=== PATIENT | male | born 1950 | race Caucasian/White ===

== ENCOUNTER 2016-09-16 19:32 | Emergency (ER) | payer MEDICARE, MEDICAID ==
[~2016-09-16] VITALS: Ht 177.8 cm; Wt 65.8 kg
[~2016-09-16 19:32] MED LIST: QUET200T PO; VENL150C2 PO
[2016-09-16] MEDS ORDERED: MAGNESIUM CITRATE 296 ML BOTTLE ONE (21:43)
[2016-09-16 21:59] VITALS: BP 140/85
[2016-09-16] MEDS ORDERED: MAGNESIUM CITRATE 296 ML BOTTLE PO ONE (22:00)
== END 2016-09-16 21:59 | disposition home or self-care (01) ==
LOC: ER 19:40
DX: K59.00 Constipation, unspecified (principal); Z98.890 Other specified postprocedural states
CPT/HCPCS: 74022; 99284; A4606; Z7610

== ENCOUNTER 2019-11-06 17:14 | Emergency (ER) | payer MEDICARE, OTHER ==
[~2019-11-06] VITALS: Ht 177.8 cm; Wt 61.2 kg
[2019-11-06] MEDS ORDERED: TAMS-12 PO (17:38)
--- NOTE | 2019-11-06 17:41 | NUR ---
PAGED GI CONSTRUCTION PIT WORKER.
[2019-11-06] MEDS ORDERED: GLUCAGON,HUMAN RECOMBINANT 1 MG/VIAL VIAL ONE (17:44)
[2019-11-06] MEDS ORDERED: ONDANSETRON HCL/PF 4 MG/2 ML VIAL ONE (17:45)
[2019-11-06] MEDS ORDERED: GLUCAGON,HUMAN RECOMBINANT 1 MG/VIAL VIAL IV ONE (18:00)
[2019-11-06] MEDS ORDERED: ONDANSETRON HCL/PF 4 MG/2 ML VIAL IVP ONE (18:00)
[2019-11-06] MEDS ORDERED: IV NS 0.9% 1,000 ML BAG IV ONE (18:00)
--- NOTE | 2019-11-06 18:02 | NUR ---
pr rec'd to er c/o swallowed big piece of meat saturdday and pt cant swallow sip of water and nsuea iv started 20g left fa labs drawn sent to lab meds given per md order gi paged
[2019-11-06 18:05] LABS: BASOPHILS # (AUTO) 0.1 /CMM (0.0-0.2); BASOPHILS % (AUTO) 1.7 % (0.0-2.0); EOSINOPHILS % (AUTO) 0.2 % (0.0-6.0); HEMATOCRIT 40 % (39-51); HEMOGLOBIN 13.2 g/dL (13.5-17.5); LYMPHOCYTES # (AUTO) 0.8 /CMM (0.8-4.8); LYMPHOCYTES % (AUTO) 12.6 % (20.0-44.0); MEAN CORPUSCULAR HGB CONC 33 g/dl (31.0-36.0); MEAN CORPUSCULAR VOLUME 96 fL (80-96); MONOCYTES # (AUTO) 0.5 /CMM (0.1-1.30); MONOCYTES % (AUTO) 7.7 % (2.0-12.0); NEUTROPHILS # (AUTO) 4.9 /CMM (1.8-8.9); NEUTROPHILS % (AUTO) 77.8 % (43.0-81.0); PLATELET COUNT (AUTO) 382 /CMM (150-450); RED BLOOD CELL COUNT(AUTO) 4.15 MIL/uL (4.5-6.0); WHITE BLOOD COUNT (AUTO) 6.2 K/uL (4.3-11.0)
--- NOTE | 2019-11-06 18:06 | NUR ---
passed swallowing test
[2019-11-06 18:29] LABS: CALCIUM, SERUM 8.4 mg/dL (8.5-10.1); CARBON DIOXIDE 25 mmol/L (21-32); CHLORIDE 107 mmol/L (98-107); CREATININE 0.9 mg/dL (0.6-1.3); GLUCOSE 88 mg/dL (74-106); SODIUM SERUM 144 mmol/L (136-145); UREA NITROGEN, BLOOD 9 mg/dL (7-18)
--- NOTE | 2019-11-06 18:40 | NUR ---
tried sips of water didnt have n/v
--- NOTE | 2019-11-06 18:44 | NUR ---
pt being preop for egd npo since 1300 sips of water for testing only
[2019-11-06] MEDS ORDERED: ANESTHESIA TRAY IN PYXIS 1 EA TRAY MC ONE (19:22)
--- NOTE | 2019-11-06 19:44 | NUR ---
PT WAS PICKED UP BY [facility]
[2019-11-06] MEDS ORDERED: SUCCINYLCHOLINE CHLORIDE 20 MG/ML VIAL ONE (19:46)
--- NOTE | 2019-11-06 20:43 | NUR ---
PT BACK FROM EGD IN STABLE CONDITION. AWAKE, ALERTAND OX3. BREATHING EVENLY. NO SOB. SATTING 97% ON R/A. DENIED ANY DISCOMFORT. PT S PLACED ON RESPIRATORY CARE PRACTITIONER. VSS.
[2019-11-06 21:23] LABS: LYMPHOCYTES % (MANUAL) 21 % (16-48); MONOCYTES % (MANUAL) 5 % (0-11.0); NEUTROPHILS % (MANUAL) 73 (42-76); REACTIVE LYMPHOCYTES 1 % (0-0)
--- NOTE | 2019-11-06 21:39 | NUR ---
PT MEDICALLY CLEAR FOR D/C PER MD. VSS. PT ABULATORY AND COMPLETELY AWAKE. NO SOB. NO A/R TO EGD OR SEDATION NOTED. IV removed. Catheter intact and site benign. Pressure and 4x4 applied to site. No bleeding noted.Patient discharged to home in stable condition. Rx abnd Written and verbal after care instructions given. Patient verbalizes understanding of instruction. pt was provided w/ dr Guadalupe's info to schedule an appoitment in a month
[2019-11-06 21:49] VITALS: BP 117/72
== END 2019-11-06 21:39 | disposition home or self-care (01) ==
LOC: ER 17:24
DX: T18.128A Food in esophagus causing other injury, initial encounter (principal); R07.89 Other chest pain; Z98.890 Other specified postprocedural states; W45.8XXA Other foreign body or object entering through skin, initial encounter; Y93.89 Activity, other specified; Y92.89 Other specified places as the place of occurrence of the external cause; Y99.8 Other external cause status
CPT/HCPCS: 36415; 43247; 71045; 80048; 84484; 85025; 85610; 85730; 87081; 88305; 88313; 88342; 93005; 96374; 96375; 99285; J0330 ×2; J1610; J2405; J2704; J7030

== ENCOUNTER 2020-02-12 23:10 | Emergency (ER) | payer MEDICARE, OTHER ==
[~2020-02-12] VITALS: Ht 177.8 cm; Wt 61.2 kg
[~2020-02-12 23:10] MED LIST changes: +TAMS-12 PO; -VENL150C2 PO
--- NOTE | 2020-02-12 23:26 | NUR ---
CHOKING ON OWN SALIVA; FEELS LIKE SOMETHING STUCK IN THROAT X 4HRS. PT AAOX4, VSS. RR EVEN & UNLABORED. DENIES CP, SOB, DIZZINESS AT THIS TIME. PT SEEN & EVAL'D BY DR. AUGUSTINE. PLACED ON TERRITORY SUPERVISOR, NSR. 02 SAT 98% RA. WILL CONT TO MONITOR.
[2020-02-12] MEDS ORDERED: GLUCAGON,HUMAN RECOMBINANT 1 MG/VIAL VIAL IV ONE (23:30)
[2020-02-12] MEDS ORDERED: GLUCAGON,HUMAN RECOMBINANT 1 MG/VIAL VIAL ONE ×2 (23:36→23:46)
[2020-02-13 01:54] VITALS: BP 159/117
--- NOTE | 2020-02-13 01:54 | NUR ---
Patient discharged to home in stable condition. Written and verbal after care instructions given. Patient verbalizes understanding of instruction.
== END 2020-02-13 01:54 | disposition home or self-care (01) ==
LOC: ER 23:14
DX: T18.120A Food in esophagus causing compression of trachea, initial encounter (principal); R11.10 Vomiting, unspecified; Z98.890 Other specified postprocedural states; X58.XXXA Exposure to other specified factors, initial encounter; Y93.89 Activity, other specified; Y92.89 Other specified places as the place of occurrence of the external cause; Y99.8 Other external cause status
CPT/HCPCS: 96374; 99283; J1610

== ENCOUNTER 2021-01-02 18:29 | Emergency (ER) | payer MEDICARE, OTHER ==
[~2021-01-02] VITALS: Ht 177.8 cm; Wt 65.8 kg
[2021-01-02] MEDS ORDERED: HYDR50TA61 PO (18:38)
[2021-01-02] MEDS ORDERED: OMEP40CA13 PO (18:38)
[2021-01-02 18:40] VITALS: BP 169/85
[2021-01-02] MEDS ORDERED: DIPH25TA25 PO (19:10)
[2021-01-02] MEDS ORDERED: HYDR453.4 TP (19:10)
== END 2021-01-02 19:44 | disposition home or self-care (01) ==
LOC: ER 18:29
DX: L30.8 Other specified dermatitis (principal); F10.10 Alcohol abuse, uncomplicated; Y90.9 Presence of alcohol in blood, level not specified; Z98.890 Other specified postprocedural states; Z79.899 Other long term (current) drug therapy

== ENCOUNTER 2021-09-09 17:29 | Inpatient (IN) | payer MEDICARE, OTHER ==
[~2021-09-09] VITALS: Ht 177.8 cm; Wt 74.4 kg
[~2021-09-09 17:29] MED LIST changes: +DIPH25TA25 PO; +HYDR453.4 TP; +HYDR50TA61 PO; +OMEP40CA21 PO
--- NOTE | 2021-09-09 17:45 | NUR ---
PT CAME TO ER C/O WORSENING SOB X "FEW WEEKS" AND R LEG PAIN. AAOX4, BREATHING EVEN AND UNLABORED. POX 96% ON RA. SKIN IS FLAY AND MOIST. TACHYCARDIC HR 104. WILL CONTINUE TO MONITOR. Addendum: 09/09/21 at 2312 by ISIS CORRECTION: SKIN IS "FLAKING" AND MOIST
[2021-09-09] MEDS ORDERED: ATOR10TA PO (18:11)
[2021-09-09] MEDS ORDERED: BETA15CR4 TP (18:11)
[2021-09-09] MEDS ORDERED: ARIP10TA9 PO (18:17)
[2021-09-09 19:08] LABS: CALCIUM, SERUM 8.5 mg/dL (8.5-10.1); CARBON DIOXIDE 18 mmol/L (21-32); CHLORIDE 108 mmol/L (98-107); CREATININE 1.4 mg/dL (0.6-1.3); GLUCOSE 90 mg/dL (74-106); POTASSIUM 4.4 mmol/L (3.5-5.1); SODIUM SERUM 139 mmol/L (136-145); UREA NITROGEN, BLOOD 18 mg/dL (7-18)
[2021-09-09 19:20] LABS: ALANINE AMINOTRANSFERASE 27 U/L (12-78); ALBUMIN 2.4 g/dL (3.4-5.0); ALKALINE PHOSPHATASE 132 U/L (46-116); ASPARTATE AMINOTRANSFERASE 38 U/L (15-37); BILIRUBIN,DIRECT 0.1 mg/dL (0.0-0.2); BILIRUBIN,TOTAL 0.2 mg/dL (0.2-1.0); TOTAL PROTEIN, SERUM 6.8 g/dL (6.4-8.2)
[2021-09-09] MEDS ORDERED: diphenhydrAMINE HCL 50 MG/ML VIAL ONE ×2 (19:22→21:58)
[2021-09-09] MEDS ORDERED: diphenhydrAMINE HCL 50 MG/ML VIAL IV ONE ×2 (19:30→22:30)
--- NOTE | 2021-09-09 19:37 | NUR ---
CALLED TRACEY KNIGHT
[2021-09-09 19:52] LABS: BASOPHILS % (AUTO) 0.5 % (0.0-2.0); EOSINOPHILS % (AUTO) 3.2 % (0.0-6.0); HEMATOCRIT 39 % (39-51); HEMOGLOBIN 13.1 g/dL (13.5-17.5); LYMPHOCYTES # (AUTO) 0.9 K/uL (0.8-4.8); LYMPHOCYTES % (AUTO) 9.4 % (20.0-44.0); MEAN CORPUSCULAR HGB CONC 33 g/dl (31.0-36.0); MEAN CORPUSCULAR VOLUME 97 fL (80-96); MONOCYTES # (AUTO) 1.5 K/uL (0.1-1.30); MONOCYTES % (AUTO) 15.5 % (2.0-12.0); NEUTROPHILS # (AUTO) 6.7 K/uL (1.8-8.9); NEUTROPHILS % (AUTO) 71.4 % (43.0-81.0); PLATELET COUNT (AUTO) 595 K/uL (150-450); RED BLOOD CELL COUNT(AUTO) 4.05 MIL/uL (4.5-6.0); WHITE BLOOD COUNT (AUTO) 9.4 K/uL (4.3-11.0)
--- NOTE | 2021-09-09 20:02 | NUR ---
COVID SWAB DONE AND SENT TO LAB
[2021-09-09] MEDS ORDERED: PIPERACILLIN /TAZOBACTAM 3.375 G in IV D5W 50 ML IV ONE (20:30)
[2021-09-09] MEDS ORDERED: VANCOMYCIN 1 GM in IV D5W 250 ML IV ONE (20:30)
[2021-09-09 20:41] LABS: BAND % (MANUAL) 2 % (0.0-5.0); EOSINOPHILS % (MANUAL) 1 % (0-4); LYMPHOCYTES % (MANUAL) 12 % (16-48); MONOCYTES % (MANUAL) 18 % (0-11.0); NEUTROPHILS % (MANUAL) 67 (42-76)
--- NOTE | 2021-09-09 20:45 | NUR ---
PT'S IV LINE CAME OUT
[2021-09-09] MEDS ORDERED: IOHEXOL-350 100 ML VIAL IV ONE (20:59)
[2021-09-09] MEDS ORDERED: CT SWABBABLE VALVE TRANS SET 1 EA INFUS.SET MC ONE (20:59)
[2021-09-09] MEDS ORDERED: IV NS 0.9% 250 ML IV ONE (20:59)
--- NOTE | 2021-09-09 21:00 | NUR ---
IV LINE STARTED RAC 20G
--- NOTE | 2021-09-09 21:04 | NUR ---
CULTURES DONE AND SENT TO LAB
--- NOTE | 2021-09-09 21:04 | NUR ---
PATIENT GOING TO CT.
--- NOTE | 2021-09-09 21:16 | NUR ---
PT BACK FROM CT
--- NOTE | 2021-09-09 22:02 | NUR ---
PT EXPERIENCING PRURITUS D/T ECZEMA FLARE UP. AWARE
--- NOTE | 2021-09-09 22:02 | NUR ---
VANCOMYCIN STOPPED D/T PRURITUS
--- NOTE | 2021-09-09 22:20 | NUR ---
VANCOMYCIN RESTARTED AT 100 ML/HR PER DR MORRIS'S ORDER
[2021-09-09] MEDS ORDERED: ACETAMINOPHEN 325 MG TABLET PO PRN (22:30)
[2021-09-09] MEDS ORDERED: Z GUARD REMEDY 4 OZ OINT TP PRN (22:30)
[2021-09-09] MEDS ORDERED: ZOLPIDEM TARTRATE 5 MG TABLET PO PRN (22:30)
[2021-09-09] MEDS ORDERED: MAGNESIUM HYDROXIDE 30 ML UDC PO PRN (22:30)
[2021-09-09] MEDS ORDERED: MORPHINE SULFATE INJ 2 MG/ML DISP.SYRIN IV PRN (22:30)
[2021-09-09] MEDS ORDERED: ONDANSETRON HCL/PF 4 MG/2 ML VIAL IVP PRN (22:30)
[2021-09-09] MEDS ORDERED: MAG HYDROX/AL HYDROX/SIMETH 30 ML UDC PO PRN (22:30)
--- NOTE | 2021-09-09 23:08 | NUR ---
BED 309-2
--- NOTE | 2021-09-09 23:09 | NUR ---
BED 329-2
--- NOTE | 2021-09-09 23:11 | NUR ---
NURSE BUSY, SAID WILL CALL BACK TO GIVE REPORT
--- NOTE | 2021-09-09 23:32 | NUR ---
REPORT GIVEN TO RN
--- NOTE | 2021-09-09 23:48 | NUR ---
TRANSFERRING PT TO 329 VIA ACLS
--- NOTE | 2021-09-09 23:57 | NUR ---
PT WAS TRANSFERRED TO THIRD FLOOR UNDER ACLS.
[2021-09-10] VITALS: BP 109/68
[2021-09-10] MEDS: IV 1/2NS 1000 ML 1,000 ML IV PRN ×2 (01:10→21:29)
[2021-09-10 01:47] VITALS: BP 109/68
[2021-09-10] MEDS: HYDROCODONE/APAP 5/325MG TABLET PO PRN ×3 (02:03→19:37)
--- NOTE | 2021-09-10 03:27 | NUR ---
PATIENT COMPLAINED OF GENERALIZED ITCHINESS, INFORMED DR KNIGHT.
[2021-09-10] MEDS ORDERED: PIPERACILLIN /TAZOBACTAM 3.375 G VIAL IV ONE (04:13)
[2021-09-10] MEDS ORDERED: diphenhydrAMINE HCL 50 MG/ML VIAL ONE (04:21)
[2021-09-10] MEDS ORDERED: ZOSYN IVPB 3.375 G in IV D5W 50ml IV ONE (04:30)
[2021-09-10] MEDS: diphenhydrAMINE HCL 50 MG/ML VIAL IV PRN ×3 (04:42→21:16)
[2021-09-10 04:55] VITALS: BP 147/82
[2021-09-10 07:31] LABS: BASOPHILS % (AUTO) 0.4 % (0.0-2.0); EOSINOPHILS % (AUTO) 0.6 % (0.0-6.0); HEMATOCRIT 36 % (39-51); HEMOGLOBIN 11.9 g/dL (13.5-17.5); LYMPHOCYTES # (AUTO) 0.5 K/uL (0.8-4.8); MEAN CORPUSCULAR HGB CONC 33 g/dl (31.0-36.0); MEAN CORPUSCULAR VOLUME 97 fL (80-96); MONOCYTES # (AUTO) 1.6 K/uL (0.1-1.30); MONOCYTES % (AUTO) 15.5 % (2.0-12.0); NEUTROPHILS # (AUTO) 8.2 K/uL (1.8-8.9); NEUTROPHILS % (AUTO) 78.5 % (43.0-81.0); PLATELET COUNT (AUTO) 542 K/uL (150-450); RED BLOOD CELL COUNT(AUTO) 3.71 MIL/uL (4.5-6.0); WHITE BLOOD COUNT (AUTO) 10.5 K/uL (4.3-11.0)
--- NOTE | 2021-09-10 07:35 | NUR ---
WOOD AND HARDWARE OUTFITTER NOTES RECEIVED PATIENT IN BED, AWAKE. A/O X4. EQUAL CHEST EXPANSION DURING RESPIRATIONS ON RA. PATIENT COMPLAINT OF GENERALIZED ITCHINESS. SKIN REDNESS/RASH NOTED ON BLE AND GENERALIZED BODY. BENADRIL 25 MG IV WAS GIVEN FOR ITCHINESS. R AC G#20 INTACT AND PATENT WITH 1/2 NS RUNNING @75 ML/HR. TELE MONITOR SHOWS SINUS TACH 106 BPM AT THIS TIME. SAFETY MEASURES IN PLACE: BED LOWEST POSITION, WHEELS ARE LOCKED, SIDE RAILS UP X2, CALL LIGHT WITHIN REACH. WILL CONTINUE TO MONITOR PATIENT
[2021-09-10 07:58] LABS: CARBON DIOXIDE 18 mmol/L (21-32); CHLORIDE 108 mmol/L (98-107); CREATININE 1.4 mg/dL (0.6-1.3); GLUCOSE 78 mg/dL (74-106); MAGNESIUM 2.1 mg/dL (1.8-2.4); PHOSPHORUS 4.1 mg/dL (2.5-4.9); SODIUM SERUM 138 mmol/L (136-145); UREA NITROGEN, BLOOD 22 mg/dL (7-18)
[2021-09-10 08:00] VITALS: BP 142/112
[2021-09-10] MEDS: HEPARIN SODIUM, PORCINE 5000 UNITS/1 ML VIAL SQ SCH ×2 (09:46→21:17)
[2021-09-10] MEDS: PANTOPRAZOLE 40 MG TABLET.DR PO SCH (09:47)
[2021-09-10] MEDS: VANCOMYCIN 0.75 GM in IV D5W 250 ML IV SCH ×2 (10:58→21:15)
[2021-09-10 11:12] LABS: BAND % (MANUAL) 2 % (0.0-5.0); LYMPHOCYTES % (MANUAL) 5 % (16-48); MONOCYTES % (MANUAL) 15 % (0-11.0); NEUTROPHILS % (MANUAL) 78 (42-76)
[2021-09-10 13:00] VITALS: BP 154/88
[2021-09-10] MEDS ORDERED: BETAMETHASONE DIP 0.05% CREAM 15 GM TUBE TP PRN (13:00)
[2021-09-10] MEDS ORDERED: hydrOXYzine 10 MG TABLET PO PRN (13:30)
[2021-09-10] MEDS: ARIPIPRAZOLE 5 MG TABLET PO SCH (13:44)
[2021-09-10] MEDS: PIPERACILLIN /TAZOBACTAM 3.375 G in IV D5W 50 ML IV SCH ×2 (13:44→17:48)
--- NOTE | 2021-09-10 19:30 | NUR ---
RIGGING SLINGER OPENING NOTES: RECEIVED PATIENT IN BED, AWAKE, A/O X4. NO S/S OF DISTRESS NOTED. NO COMPLAIN OF PAIN. CALL LIGHT WITHIN REACH. BED ALARM ON. BED IN LOWEST AND LOCKED POSITION. CONTACT ISOLATION MAINTAINED AT ALL TIMES.
[2021-09-10 20:00] VITALS: BP 147/79
--- NOTE | 2021-09-10 20:29 | NUR ---
DR JEFFREY CAME AND SEEN THE PATIENT. PER MD IT'S NOT CELLULITIS OF THE LEGS, MAY BENEFIT FROM EPIC BEACON ANALYST CONSULTATIONS.
[2021-09-10] MEDS: ATORVASTATIN 10 MG TABLET PO SCH (21:16)
[2021-09-10] MEDS: QUETIAPINE FUMARATE 100 MG TABLET PO SCH (21:16)
--- NOTE | 2021-09-10 23:35 | NUR ---
IV ON THE RIGHT AC INFILTRATED. REMOVED. TRIED TO REINSERT THE IV,UNSUCCESSFUL, CHARGE NURSE MADE AWARE.
[2021-09-11] VITALS: BP 104/63
[2021-09-11 04:00] VITALS: BP 136/84
--- NOTE | 2021-09-11 07:59 | NUR ---
MASON TENDER RESTORATION LABOR OPENING NOTE Patient in bed, awake. A/O x 4, able to make needs known. On room air, breathing evenly and unlabored. No SOB or s/s of distress noted. IV access on LEJ infusing 1/2 NS at 75 ml/hr. On tele monitoring showing SR at 96. Safety precautions in place: bed in low, locked position; siderails up x 2; call light within reach. Will continue to monitor.
[2021-09-11 08:00] VITALS: BP 131/68
[2021-09-11 08:17] LABS: CARBON DIOXIDE 17 mmol/L (21-32); CHLORIDE 109 mmol/L (98-107); CREATININE 1.5 mg/dL (0.6-1.3); GLUCOSE 72 mg/dL (74-106); POTASSIUM 3.9 mmol/L (3.5-5.1); SODIUM SERUM 138 mmol/L (136-145); UREA NITROGEN, BLOOD 27 mg/dL (7-18)
--- NOTE | 2021-09-11 08:18 | NUR ---
WOUND CARE CONSULT: PT PRESENTS WITH REDNESS AND SCRATCH RODRIGUEZ, TINY SCABS ALL OVER BODY WITH SOME DRIED BLOOD ON LOWER LEGS WELL LONG TOENAILS, PRESENT ON ADMISSION. DEFER TO PMD FOR GENERALIZED SKIN CONDITION. DPM CONSULT CALLED TO DR LOPEZ. PT IS ABLE TO TURN AND REPOSITION IN BED. MD IN AGREEMENT WITH PLAN OF CARE.
[2021-09-11] MEDS: PANTOPRAZOLE 40 MG TABLET.DR PO SCH (09:53)
[2021-09-11] MEDS: TAMSULOSIN 0.4 MG CAP.SR.24H PO SCH (09:53)
[2021-09-11] MEDS: ARIPIPRAZOLE 5 MG TABLET PO SCH (09:53)
[2021-09-11] MEDS: HEPARIN SODIUM, PORCINE 5000 UNITS/1 ML VIAL SQ SCH ×2 (09:55→21:08)
[2021-09-11] MEDS: VANCOMYCIN 0.75 GM in IV D5W 250 ML IV SCH (10:00)
--- NOTE | 2021-09-11 10:19 | NUR ---
RN NOTE Vancomycin trough is 25, Vancomycin IV scheduled for 1000 held.
[2021-09-11] MEDS ORDERED: methylPREDNISolone DOSPAK(4MG) 1 PACK TAB.DS.PK PO ONE (11:30)
[2021-09-11] MEDS ORDERED: methylPREDNISolone (4MG) 4 MG TABLET (DAY #1 ) PO ONE (12:00)
[2021-09-11] MEDS: HYDROCODONE/APAP 5/325MG TABLET PO PRN ×2 (12:19→17:59)
[2021-09-11] MEDS ORDERED: methylPREDNISolone (4MG) 4 MG TABLET (DAY #1, PC LUNCH) PO ONE (12:30)
[2021-09-11 16:00] VITALS: BP 145/79
[2021-09-11] MEDS: VANCOMYCIN 500 MG in IV D5W 100ml IV SCH (16:30)
[2021-09-11] MEDS ORDERED: methylPREDNISolone (4MG) 4 MG TABLET (DAY #1 PC DINNER) PO ONE (17:30)
[2021-09-11] MEDS: IV 1/2NS 1000 ML 1,000 ML IV PRN (17:55)
--- NOTE | 2021-09-11 19:41 | NUR ---
AIR TUBE RELEASER CLOSING NOTE Patient in bed, resting comfortably. A/O x 4, able to make needs known. Stable on room air, breathing evenly and unlabored. No SOB or s/s of distress noted. IV access on LEJ infusing 1/2 NS at 75 ml/hr. Rashes on BLE noted, skin dry and cracked. All needs attended to. Due meds given. Safety precautions maintained: bed in low, locked position; siderails up x 2; call light within reach. Will endorse to maintenance supervisor 2nd shift nurse for JOSE L.
--- NOTE | 2021-09-11 19:50 | NUR ---
MS RN OPENING NOTES RECEIVED PATIENT LAYING AWAKE IN BED. A/O X 4. PATIENT WITH REGULAR AND UNLABORED BREATHING ON ROOM AIR TOLERATED WELL. NO SIGNS AND SYMPTOMS OF DISTRESS NOTED AT THIS TIME. NO COMPLAINS OF PAIN OR DISCOMFORT AT THIS TIME. IV ACCESS LEJ G #20 RUNNING 1/2 NS @ 75 ML/HR. IV ACCESS PATENT AND INTACT. SAFETY PRECAUTIONS ENFORCED WITH BED LOCKED AND AT LOWEST POSITION. SIDERAILS UP X2. CALL LIGHT WITHIN REACH AT ALL TIMES. WILL CONTINUE TO MONITOR PATIENT.
[2021-09-11 20:00] VITALS: BP 133/75
[2021-09-11] MEDS: QUETIAPINE FUMARATE 100 MG TABLET PO SCH (21:07)
[2021-09-11] MEDS: ATORVASTATIN 10 MG TABLET PO SCH (21:07)
[2021-09-11] MEDS ORDERED: methylPREDNISolone (4MG) 4 MG TABLET (DAY1,HS) PO ONE (22:00)
[2021-09-12] MEDS: HYDROCODONE/APAP 5/325MG TABLET PO PRN ×3 (01:43→15:59)
--- NOTE | 2021-09-12 04:35 | NUR ---
MS RN NOTES LEJ IV REMOVED CATHETER INTACT. IV ACCESS INSERTED L HAND G #22 IV ACCESS PATENT AND INTACT FLUSHING WELL. WILL CONTINUE TO MONITOR PATIENT.
[2021-09-12] MEDS: VANCOMYCIN 500 MG in IV D5W 100ml IV SCH ×2 (04:38→16:00)
--- NOTE | 2021-09-12 06:58 | NUR ---
MS RN CLOSING NOTES PATIENT STILL LAYING AWAKE IN BED. A/O X 4. PATIENT WITH REGULAR AND UNLABORED BREATHING ON ROOM AIR TOLERATED WELL. NO SIGNS AND SYMPTOMS OF DISTRESS NOTED AT THIS TIME. NO COMPLAINS OF PAIN OR DISCOMFORT AT THIS TIME. IV ACCESS L HAND G #22 RUNNING 1/2 NS @ 75 ML/HR. IV ACCESS PATENT AND INTACT. SAFETY PRECAUTIONS ENFORCED WITH BED LOCKED AND AT LOWEST POSITION. SIDERAILS UP X2. CALL LIGHT WITHIN REACH AT ALL TIMES. WILL ENDORSE CONTINUITY OF CARE TO DAY SHIFT NURSE.
[2021-09-12] MEDS ORDERED: methylPREDNISolone (4MG) 4 MG TABLET (DAY#2 ACB) PO ONE (07:30)
[2021-09-12] MEDS: PANTOPRAZOLE 40 MG TABLET.DR PO SCH (07:46)
--- NOTE | 2021-09-12 07:59 | NUR ---
FLY WORKER OPENING NOTE Patient in bed, awake. A/O x 4, able to make needs known. On room air, breathing evenly and unlabored. No SOB or s/s of distress noted. IV access on Left hand #22G infusing 1/2 NS at 75 ml/hr. Skin rashes noted on BLE and BUE, skin is dry and cracking. Safety precautions in place: bed in low, locked position; siderails up x 2; call light within reach. Will continue to monitor.
--- NOTE | 2021-09-12 08:00 | NUR ---
RN NOTE Patient complained of pain on BLE 02/23, PRN [place] given. Will continue to monitor.
[2021-09-12 08:11] LABS: CREATININE 1.2 mg/dL (0.6-1.3); POTASSIUM 3.9 mmol/L (3.5-5.1)
[2021-09-12] MEDS: TAMSULOSIN 0.4 MG CAP.SR.24H PO SCH (08:37)
[2021-09-12] MEDS: ARIPIPRAZOLE 5 MG TABLET PO SCH (08:37)
[2021-09-12] MEDS: HEPARIN SODIUM, PORCINE 5000 UNITS/1 ML VIAL SQ SCH (08:38)
[2021-09-12] MEDS ORDERED: VANC1VIA34 XX (10:45)
[2021-09-12] MEDS ORDERED: METH4TAB17 PO (11:00)
[2021-09-12] MEDS: IV 1/2NS 1000 ML 1,000 ML IV PRN (11:13)
[2021-09-12] MEDS ORDERED: methylPREDNISolone (4MG) 4 MG TABLET (DAY#2,PC LUNCH) PO ONE (12:30)
[2021-09-12] MEDS ORDERED: IVERMECTIN 3 MG TABLET PO ONE (15:00)
[2021-09-12] MEDS ORDERED: methylPREDNISolone (4MG) 4 MG TABLET (DAY#2, PC DINNER) PO ONE (17:30)
--- NOTE | 2021-09-12 18:45 | NUR ---
DISCHARGE NOTE Received order for discharge. Patient is A/O x 4, able to make needs known. Stable on room air, breathing evenly and unlabored. No SOB or s/s distress noted. Discharge instructions given, verbalized understanding. All belongings accounted for. Report given to Lynnette of [facility]. IV access removed on left hand, no bleeding noted. New IV access placed on FAYE #20 for continuity of IV antibiotic at the SNF. Exitcare folder given to EMT. ID band removed. Patient left in stable condition via ambulance with 3 legal researcher present.
[2021-09-12] MEDS ORDERED: methylPREDNISolone (4MG) 4 MG TABLET (DAY#2, HS) PO ONE (21:00)
[2021-09-13] MEDS ORDERED: methylPREDNISolone (4MG) 4 MG TABLET (DAY#3,ACB) PO ONE (07:30)
[2021-09-13] MEDS ORDERED: methylPREDNISolone (4MG) 4 MG TABLET (DAY#3,PC LUNCH) PO ONE (12:30)
[2021-09-13] MEDS ORDERED: methylPREDNISolone (4MG) 4 MG TABLET (DAY#3,PC DINNER) PO ONE (17:30)
[2021-09-13] MEDS ORDERED: methylPREDNISolone (4MG) 4 MG TABLET (DAY#3, HS) PO ONE (22:00)
[2021-09-14] MEDS ORDERED: methylPREDNISolone (4MG) 4 MG TABLET (DAY #4, ACB) PO ONE (07:30)
[2021-09-14] MEDS ORDERED: methylPREDNISolone (4MG) 4 MG TABLET (DAY #4, PC LUNCH) PO ONE (12:30)
[2021-09-14] MEDS ORDERED: methylPREDNISolone (4MG) 4 MG TABLET (DAY#4 HS) PO ONE (22:00)
[2021-09-15] MEDS ORDERED: methylPREDNISolone (4MG) 4 MG TABLET (DAY#5, ACB) PO ONE (07:30)
[2021-09-15] MEDS ORDERED: methylPREDNISolone (4MG) 4 MG TABLET (DAY#5,HS) PO ONE (22:00)
[2021-09-16] MEDS ORDERED: methylPREDNISolone (4MG) 4 MG TABLET (DAY#6,ACB) PO ONE (07:30)
[2021-09-26] MEDS ORDERED: IVERMECTIN 3 MG TABLET PO ONE (15:00)
== END 2021-09-12 18:45 | DRG 606 ==
LOC: ER 17:39 → TELE 23:07 → MED 09-11 08:59
PROVIDERS: ADMIT Student in an Organized Health Care Education/Training Program; ATTEND Internal Medicine
DX: L20.9 Atopic dermatitis, unspecified (principal); N17.0 Acute kidney failure with tubular necrosis; L03.115 Cellulitis of right lower limb; E87.2 Acidosis; L03.116 Cellulitis of left lower limb; N40.0 Benign prostatic hyperplasia without lower urinary tract symptoms; D64.9 Anemia, unspecified; D75.839 Thrombocytosis, unspecified; F31.9 Bipolar disorder, unspecified; K46.9 Unspecified abdominal hernia without obstruction or gangrene; Z79.899 Other long term (current) drug therapy; E78.5 Hyperlipidemia, unspecified; R74.01 Elevation of levels of liver transaminase levels; I87.2 Venous insufficiency (chronic) (peripheral); N13.9 Obstructive and reflux uropathy, unspecified; I71.2 Thoracic aortic aneurysm, without rupture; L60.3 Nail dystrophy; M62.562 Muscle wasting and atrophy, not elsewhere classified, left lower leg; M62.561 Muscle wasting and atrophy, not elsewhere classified, right lower leg
CPT/HCPCS: 36415; 71045-TC; 80048-TC; 80076-TC; 80202-TC; 83605-TC; 83735-TC; 83880; 84100-TC; 84484-TC; 85025-TC; 85378-TC; 86803; 87040-TC; 87081-TC; 87806; 93307-TC; 93970-TC; C9803; G0378; J1200; J1644; J2270; J2543; J3370; J3490; J7050; J7060; J7509; Q9967

== ENCOUNTER 2021-12-14 16:19 | Inpatient (IN) | payer MEDICARE, OTHER ==
[~2021-12-14] VITALS: Ht 177.8 cm; Wt 71.7 kg
[~2021-12-14 16:19] MED LIST changes: +ARIP10TA9 PO; +ATOR10TA PO; +BETA15CR4 TP; -DIPH25TA25 PO; -HYDR453.4 TP; +METH4TAB17 PO; +VANC1VIA34 XX
[2021-12-14] MEDS ORDERED: diphenhydrAMINE HCL 50 MG/ML VIAL IV ONE (17:30)
[2021-12-14] MEDS ORDERED: IV NS 0.9% 1,000 ML BAG IV ONE (17:30)
[2021-12-14] MEDS ORDERED: VANCOMYCIN 1 GM in IV D5W 250 ML IV ONE (17:30)
[2021-12-14] MEDS ORDERED: diphenhydrAMINE HCL 50 MG/ML VIAL ONE (17:30)
[2021-12-14] MEDS ORDERED: CEFTRIAXONE 1GM BAG (ER ONLY) 50 ML IV ONE (17:30)
[2021-12-14 18:08] LABS: BASOPHILS # (AUTO) 0.1 K/uL (0.0-0.2); EOSINOPHILS % (AUTO) 19.6 % (0.0-6.0); HEMATOCRIT 32 % (39-51); HEMOGLOBIN 10.6 g/dL (13.5-17.5); LYMPHOCYTES # (AUTO) 0.8 K/uL (0.8-4.8); LYMPHOCYTES % (AUTO) 12.6 % (20.0-44.0); MEAN CORPUSCULAR HGB CONC 33 g/dl (31.0-36.0); MEAN CORPUSCULAR VOLUME 89 fL (80-96); MONOCYTES # (AUTO) 0.8 K/uL (0.1-1.30); MONOCYTES % (AUTO) 13.5 % (2.0-12.0); NEUTROPHILS # (AUTO) 3.3 K/uL (1.8-8.9); NEUTROPHILS % (AUTO) 53.3 % (43.0-81.0); PLATELET COUNT (AUTO) 596 K/uL (150-450); RED BLOOD CELL COUNT(AUTO) 3.62 MIL/uL (4.5-6.0); WHITE BLOOD COUNT (AUTO) 6.2 K/uL (4.3-11.0)
[2021-12-14 18:20] LABS: CALCIUM, SERUM 8.1 mg/dL (8.5-10.1); CREATININE 1.1 mg/dL (0.6-1.3); POTASSIUM 4.1 mmol/L (3.5-5.1)
[2021-12-14] MEDS ORDERED: ONDANSETRON HCL/PF 4 MG/2 ML VIAL IVP PRN (21:00)
[2021-12-14] MEDS ORDERED: BETAMETHASONE DIP 0.05% CREAM 15 GM TUBE TP PRN (21:00)
[2021-12-14] MEDS ORDERED: Z GUARD REMEDY 4 OZ OINT TP PRN (21:00)
[2021-12-14] MEDS ORDERED: ZOLPIDEM TARTRATE 5 MG TABLET PO PRN (21:00)
[2021-12-14] MEDS ORDERED: MAG HYDROX/AL HYDROX/SIMETH 30 ML UDC PO PRN (21:00)
[2021-12-14] MEDS ORDERED: MAGNESIUM HYDROXIDE 30 ML UDC PO PRN (21:00)
[2021-12-14] MEDS ORDERED: hydrOXYzine PAMOATE 50 MG CAPSULE PO PRN (21:30)
[2021-12-14 22:40] VITALS: BP 152/85
[2021-12-14] MEDS: ATORVASTATIN 10 MG TABLET PO SCH (23:10)
[2021-12-14] MEDS: QUETIAPINE FUMARATE 100 MG TABLET PO SCH (23:10)
[2021-12-14] MEDS: IV NS 0.9% 1,000 ML IV PRN (23:52)
[2021-12-15] MEDS ORDERED: VANCOMYCIN 1 GM in IV D5W 250 ML IV ONE (06:00)
[2021-12-15] MEDS ORDERED: hydrOXYzine PAMOATE 25 MG CAPSULE PO PRN (06:30)
[2021-12-15] MEDS: TAMSULOSIN 0.4 MG CAP.SR.24H PO SCH (08:57)
[2021-12-15] MEDS: PANTOPRAZOLE 40 MG TABLET.DR PO SCH (08:57)
[2021-12-15] MEDS: ARIPIPRAZOLE 5 MG TABLET PO SCH (08:58)
[2021-12-15] MEDS ORDERED: CEFTRIAXONE 1 G in IV D5W 50 ML IV SCH ×2 (09:00→18:00)
[2021-12-15 09:21] LABS: CALCIUM, SERUM 7.3 mg/dL (8.5-10.1); CREATININE 0.8 mg/dL (0.6-1.3); MAGNESIUM 1.5 mg/dL (1.8-2.4); PHOSPHORUS 3.4 mg/dL (2.5-4.9)
[2021-12-15] MEDS ORDERED: MAGNESIUM OXIDE 400 MG TABLET PO ONE (10:00)
[2021-12-15] MEDS ORDERED: MOMETASONE FUROATE 0.1% CREAM 15 GM TUBE TP PRN (10:30)
[2021-12-15 11:46] LABS: BASOPHILS # (AUTO) 0.1 K/uL (0.0-0.2); BASOPHILS % (AUTO) 1.4 % (0.0-2.0); EOSINOPHILS % (AUTO) 5.8 % (0.0-6.0); HEMATOCRIT 27 % (39-51); HEMOGLOBIN 8.8 g/dL (13.5-17.5); LYMPHOCYTES # (AUTO) 0.4 K/uL (0.8-4.8); LYMPHOCYTES % (AUTO) 8.3 % (20.0-44.0); MEAN CORPUSCULAR HGB CONC 33 g/dl (31.0-36.0); MEAN CORPUSCULAR VOLUME 89 fL (80-96); MONOCYTES # (AUTO) 0.4 K/uL (0.1-1.30); MONOCYTES % (AUTO) 8.4 % (2.0-12.0); NEUTROPHILS # (AUTO) 3.4 K/uL (1.8-8.9); NEUTROPHILS % (AUTO) 76.1 % (43.0-81.0); PLATELET COUNT (AUTO) 433 K/uL (150-450); RED BLOOD CELL COUNT(AUTO) 2.99 MIL/uL (4.5-6.0); WHITE BLOOD COUNT (AUTO) 4.5 K/uL (4.3-11.0)
[2021-12-15] MEDS: IV NS 0.9% 1,000 ML IV PRN (17:14)
[2021-12-15] MEDS: ACETAMINOPHEN 325 MG TABLET PO PRN (17:15)
[2021-12-15] MEDS ORDERED: VANCOMYCIN 1 GM in IV D5W 250 ML IV SCH (18:00)
[2021-12-15 20:00] VITALS: BP 100/65
[2021-12-15] MEDS ORDERED: PERMETHRIN 5% CRM 60 GM TUBE TP ONE ×2 (22:00→23:03)
[2021-12-15] MEDS ORDERED: IVERMECTIN 3 MG TABLET PO ONE (22:00)
[2021-12-15] MEDS: QUETIAPINE FUMARATE 100 MG TABLET PO SCH (22:06)
[2021-12-15] MEDS: DOXYCYCLINE HYCLATE (100 MG) 100 MG TABLET PO SCH (22:06)
[2021-12-15] MEDS: ATORVASTATIN 10 MG TABLET PO SCH (22:07)
[2021-12-16 07:24] LABS: BASOPHILS % (AUTO) 0.7 % (0.0-2.0); EOSINOPHILS % (AUTO) 7.6 % (0.0-6.0); HEMATOCRIT 27 % (39-51); HEMOGLOBIN 8.9 g/dL (13.5-17.5); LYMPHOCYTES # (AUTO) 0.7 K/uL (0.8-4.8); LYMPHOCYTES % (AUTO) 12.2 % (20.0-44.0); MEAN CORPUSCULAR HGB CONC 33 g/dl (31.0-36.0); MEAN CORPUSCULAR VOLUME 88 fL (80-96); MONOCYTES # (AUTO) 0.8 K/uL (0.1-1.30); MONOCYTES % (AUTO) 14.3 % (2.0-12.0); NEUTROPHILS # (AUTO) 3.8 K/uL (1.8-8.9); NEUTROPHILS % (AUTO) 65.2 % (43.0-81.0); PLATELET COUNT (AUTO) 449 K/uL (150-450); RED BLOOD CELL COUNT(AUTO) 3.07 MIL/uL (4.5-6.0); WHITE BLOOD COUNT (AUTO) 5.8 K/uL (4.3-11.0)
[2021-12-16 07:53] LABS: ALBUMIN 1.5 g/dL (3.4-5.0); BILIRUBIN,TOTAL 0.2 mg/dL (0.2-1.0); CALCIUM, SERUM 7.5 mg/dL (8.5-10.1); CREATININE 0.9 mg/dL (0.6-1.3); MAGNESIUM 1.6 mg/dL (1.8-2.4); PHOSPHORUS 2.4 mg/dL (2.5-4.9); POTASSIUM 3.9 mmol/L (3.5-5.1); TOTAL PROTEIN, SERUM 5.9 g/dL (6.4-8.2)
[2021-12-16 08:00] VITALS: BP 137/80
[2021-12-16] MEDS ORDERED: K PHOS NEUTRAL 250 MG TABLET PO ONE (09:30)
[2021-12-16] MEDS: Magnesium 1GM/D5W 100ML PREMIX 100 ML IV SCH ×2 (09:41→11:04)
[2021-12-16] MEDS: ARIPIPRAZOLE 5 MG TABLET PO SCH (09:42)
[2021-12-16] MEDS: LORATADINE 10 MG TABLET PO SCH (09:42)
[2021-12-16] MEDS: TRIAMCINOLONE ACETONIDE 0.1% CR 15 GM TUBE TP SCH ×3 (09:42→16:01)
[2021-12-16] MEDS: DOXYCYCLINE HYCLATE (100 MG) 100 MG TABLET PO SCH ×2 (09:42→21:25)
[2021-12-16] MEDS: TAMSULOSIN 0.4 MG CAP.SR.24H PO SCH (09:42)
[2021-12-16] MEDS: PANTOPRAZOLE 40 MG TABLET.DR PO SCH (09:42)
[2021-12-16 16:00] VITALS: BP 135/71
[2021-12-16] MEDS: CLOTRIMAZOLE/BETAMETASONE DIPROPIONATE 15 GM TUBE TP SCH (16:01)
[2021-12-16] MEDS: ACETAMINOPHEN 325 MG TABLET PO PRN (18:54)
[2021-12-16 20:00] VITALS: BP 143/73
[2021-12-16] MEDS: ATORVASTATIN 10 MG TABLET PO SCH (21:25)
[2021-12-16] MEDS: QUETIAPINE FUMARATE 100 MG TABLET PO SCH (21:25)
[2021-12-16] MEDS: IV NS 0.9% 1,000 ML IV PRN (23:52)
[2021-12-17] MEDS: ACETAMINOPHEN 325 MG TABLET PO PRN ×2 (05:43→15:12)
[2021-12-17 06:20] LABS: ALANINE AMINOTRANSFERASE 11 U/L (12-78); ALBUMIN 1.7 g/dL (3.4-5.0); ALKALINE PHOSPHATASE 133 U/L (46-116); ASPARTATE AMINOTRANSFERASE 26 U/L (15-37); BILIRUBIN,TOTAL 0.2 mg/dL (0.2-1.0); CALCIUM, SERUM 7.4 mg/dL (8.5-10.1); CARBON DIOXIDE 24 mmol/L (21-32); CHLORIDE 106 mmol/L (98-107); CREATININE 0.8 mg/dL (0.6-1.3); GLUCOSE 88 mg/dL (74-106); MAGNESIUM 1.9 mg/dL (1.8-2.4); PHOSPHORUS 2.7 mg/dL (2.5-4.9); POTASSIUM 4.1 mmol/L (3.5-5.1); SODIUM SERUM 135 mmol/L (136-145); TOTAL PROTEIN, SERUM 6.6 g/dL (6.4-8.2); UREA NITROGEN, BLOOD 9 mg/dL (7-18)
[2021-12-17 07:06] LABS: BASOPHILS # (AUTO) 0.1 K/uL (0.0-0.2); BASOPHILS % (AUTO) 0.8 % (0.0-2.0); EOSINOPHILS % (AUTO) 3.6 % (0.0-6.0); HEMATOCRIT 30 % (39-51); HEMOGLOBIN 9.8 g/dL (13.5-17.5); LYMPHOCYTES # (AUTO) 0.8 K/uL (0.8-4.8); LYMPHOCYTES % (AUTO) 12.3 % (20.0-44.0); MEAN CORPUSCULAR HGB CONC 33 g/dl (31.0-36.0); MEAN CORPUSCULAR VOLUME 89 fL (80-96); MONOCYTES # (AUTO) 0.7 K/uL (0.1-1.30); MONOCYTES % (AUTO) 11.6 % (2.0-12.0); NEUTROPHILS # (AUTO) 4.5 K/uL (1.8-8.9); NEUTROPHILS % (AUTO) 71.7 % (43.0-81.0); PLATELET COUNT (AUTO) 487 K/uL (150-450); RED BLOOD CELL COUNT(AUTO) 3.36 MIL/uL (4.5-6.0); WHITE BLOOD COUNT (AUTO) 6.2 K/uL (4.3-11.0)
[2021-12-17 08:00] VITALS: BP 137/77
[2021-12-17] MEDS ORDERED: LIDOCAINE 1%-EPI 1:100,000 20 ML VIAL TP ONE (08:00)
[2021-12-17] MEDS: TRIAMCINOLONE ACETONIDE 0.1% CR 15 GM TUBE TP SCH ×3 (09:00→16:21)
[2021-12-17] MEDS: ARIPIPRAZOLE 5 MG TABLET PO SCH (09:21)
[2021-12-17] MEDS: DOXYCYCLINE HYCLATE (100 MG) 100 MG TABLET PO SCH (09:22)
[2021-12-17] MEDS: TAMSULOSIN 0.4 MG CAP.SR.24H PO SCH (09:22)
[2021-12-17] MEDS: LORATADINE 10 MG TABLET PO SCH (09:22)
[2021-12-17] MEDS: PANTOPRAZOLE 40 MG TABLET.DR PO SCH (09:23)
[2021-12-17] MEDS: CLOTRIMAZOLE/BETAMETASONE DIPROPIONATE 15 GM TUBE TP SCH ×2 (10:08→16:21)
[2021-12-17] MEDS: VANCOMYCIN 1.25 GM in IV D5W 250 ML IV SCH ×2 (13:29→20:57)
[2021-12-17] MEDS: IV NS 0.9% 1,000 ML IV PRN (13:29)
[2021-12-17 16:00] VITALS: BP 142/68
[2021-12-17] MEDS: QUETIAPINE FUMARATE 100 MG TABLET PO SCH (21:00)
[2021-12-17] MEDS: ATORVASTATIN 10 MG TABLET PO SCH (21:00)
[2021-12-17 21:02] VITALS: BP 137/97
[2021-12-18 07:10] LABS: CALCIUM, SERUM 7.3 mg/dL (8.5-10.1); CREATININE 0.9 mg/dL (0.6-1.3); POTASSIUM 3.9 mmol/L (3.5-5.1)
[2021-12-18] MEDS: PANTOPRAZOLE 40 MG TABLET.DR PO SCH (08:10)
[2021-12-18] MEDS: LORATADINE 10 MG TABLET PO SCH (08:10)
[2021-12-18] MEDS: ARIPIPRAZOLE 5 MG TABLET PO SCH (08:11)
[2021-12-18] MEDS: TAMSULOSIN 0.4 MG CAP.SR.24H PO SCH (08:11)
[2021-12-18] MEDS: ACETAMINOPHEN 325 MG TABLET PO PRN (08:11)
[2021-12-18] MEDS: CLOTRIMAZOLE/BETAMETASONE DIPROPIONATE 15 GM TUBE TP SCH ×2 (08:20→16:30)
[2021-12-18] MEDS: TRIAMCINOLONE ACETONIDE 0.1% CR 15 GM TUBE TP SCH ×3 (08:26→16:30)
[2021-12-18] MEDS: VANCOMYCIN 1.25 GM in IV D5W 250 ML IV SCH ×2 (08:26→21:30)
[2021-12-18 08:32] LABS: ALBUMIN 1.6 g/dL (3.4-5.0); BILIRUBIN,TOTAL 0.1 mg/dL (0.2-1.0); TOTAL PROTEIN, SERUM 6.3 g/dL (6.4-8.2)
[2021-12-18] MEDS: IV NS 0.9% 1,000 ML IV PRN (13:42)
[2021-12-18 20:00] VITALS: BP 137/87
[2021-12-18] MEDS: QUETIAPINE FUMARATE 100 MG TABLET PO SCH (21:31)
[2021-12-18] MEDS: ATORVASTATIN 10 MG TABLET PO SCH (21:31)
[2021-12-19] MEDS: IV NS 0.9% 1,000 ML IV PRN (05:51)
[2021-12-19 07:02] LABS: ALBUMIN 1.6 g/dL (3.4-5.0); BILIRUBIN,TOTAL 0.1 mg/dL (0.2-1.0); CALCIUM, SERUM 7.9 mg/dL (8.5-10.1); CREATININE 0.9 mg/dL (0.6-1.3); POTASSIUM 4.2 mmol/L (3.5-5.1); TOTAL PROTEIN, SERUM 6.3 g/dL (6.4-8.2)
[2021-12-19] MEDS: PANTOPRAZOLE 40 MG TABLET.DR PO SCH (08:20)
[2021-12-19] MEDS: CLOTRIMAZOLE/BETAMETASONE DIPROPIONATE 15 GM TUBE TP SCH (08:21)
[2021-12-19] MEDS: LORATADINE 10 MG TABLET PO SCH (08:21)
[2021-12-19] MEDS: TAMSULOSIN 0.4 MG CAP.SR.24H PO SCH (08:21)
[2021-12-19] MEDS: ARIPIPRAZOLE 5 MG TABLET PO SCH (08:21)
[2021-12-19] MEDS: TRIAMCINOLONE ACETONIDE 0.1% CR 15 GM TUBE TP SCH (08:21)
[2021-12-19] MEDS: VANCOMYCIN 1.25 GM in IV D5W 250 ML IV SCH (09:00)
[2021-12-19] MEDS ORDERED: MOME45CR3 TP (10:31)
[2021-12-19] MEDS ORDERED: TRIA80CR12 TP (10:31)
[2021-12-19] MEDS ORDERED: CLOT15CR5 TP (10:31)
[2021-12-19 11:17] LABS: BASOPHILS % (AUTO) 0.7 % (0.0-2.0); EOSINOPHILS % (AUTO) 4.7 % (0.0-6.0); HEMATOCRIT 27 % (39-51); LYMPHOCYTES # (AUTO) 1.4 K/uL (0.8-4.8); MEAN CORPUSCULAR HGB CONC 33 g/dl (31.0-36.0); MEAN CORPUSCULAR VOLUME 89 fL (80-96); MONOCYTES # (AUTO) 1.5 K/uL (0.1-1.30); MONOCYTES % (AUTO) 21.5 % (2.0-12.0); NEUTROPHILS # (AUTO) 3.8 K/uL (1.8-8.9); NEUTROPHILS % (AUTO) 53.1 % (43.0-81.0); PLATELET COUNT (AUTO) 448 K/uL (150-450); RED BLOOD CELL COUNT(AUTO) 3.07 MIL/uL (4.5-6.0); WHITE BLOOD COUNT (AUTO) 7.1 K/uL (4.3-11.0)
[2021-12-19 12:56] LABS: EOSINOPHILS % (MANUAL) 4 % (0-4); LYMPHOCYTES % (MANUAL) 14 % (16-48); MONOCYTES % (MANUAL) 23 % (0-11.0); NEUTROPHILS % (MANUAL) 59 (42-76)
[2021-12-19] MEDS ORDERED: VANCOMYCIN 0.75 GM in IV D5W 250 ML IV SCH (21:00)
== END 2021-12-19 15:15 | DRG 596 ==
LOC: ER 16:32 → MED 21:12
PROVIDERS: ADMIT Nurse Practitioner Acute Care; ATTEND Internal Medicine
PROC: 05H533Z Insertion of Infusion Device into Right Subclavian Vein, Percutaneous Approach (ICD-10-PCS; 2021-12-15)
PROC: B546ZZA Ultrasonography of Right Subclavian Vein, Guidance (ICD-10-PCS; 2021-12-15)
PROC: 0HBRXZZ Excision of Toe Nail, External Approach (ICD-10-PCS; principal; 2021-12-16)
PROC: 05H533Z Insertion of Infusion Device into Right Subclavian Vein, Percutaneous Approach (ICD-10-PCS; 2021-12-16)
PROC: B546ZZA Ultrasonography of Right Subclavian Vein, Guidance (ICD-10-PCS; 2021-12-16)
PROC: 0HB6XZX Excision of Back Skin, External Approach, Diagnostic (ICD-10-PCS; 2021-12-17)
PROC: 0HBKXZX Excision of Right Lower Leg Skin, External Approach, Diagnostic (ICD-10-PCS; 2021-12-17)
DX: L40.9 Psoriasis, unspecified (principal); L03.115 Cellulitis of right lower limb; E44.0 Moderate protein-calorie malnutrition; L03.114 Cellulitis of left upper limb; L03.113 Cellulitis of right upper limb; L03.116 Cellulitis of left lower limb; Z20.822 Contact with and (suspected) exposure to COVID-19; L30.9 Dermatitis, unspecified; D63.8 Anemia in other chronic diseases classified elsewhere; N40.0 Benign prostatic hyperplasia without lower urinary tract symptoms; E78.5 Hyperlipidemia, unspecified; E88.09 Other disorders of plasma-protein metabolism, not elsewhere classified; F31.9 Bipolar disorder, unspecified; L60.3 Nail dystrophy; I87.2 Venous insufficiency (chronic) (peripheral); M79.662 Pain in left lower leg; M79.661 Pain in right lower leg; Z68.22 Body mass index [BMI] 22.0-22.9, adult; B86 Scabies; Q80.0 Ichthyosis vulgaris
CPT/HCPCS: 36415; 80048-TC; 80053-TC; 80076-TC; 80202-TC; 83605-TC; 83735-TC; 84100-TC; 85025-TC; 87040-TC; 87081-TC; A6403; C9803; G0378; J0696; J1200; J3370; J3475; J3490; J7030; J7060; Q0177

== ENCOUNTER 2022-06-03 08:18 | Inpatient (IN) | payer MEDICARE, OTHER ==
[~2022-06-03] VITALS: Ht 180.3 cm; Wt 67.1 kg
[~2022-06-03 08:18] MED LIST changes: +CLOT15CR5 TP; -METH4TAB17 PO; +MOME45CR3 TP; +TRIA80CR12 TP; -VANC1VIA34 XX
--- NOTE | 2022-06-03 08:30 | NUR ---
BIBRA 881 from home c/o SI, denies visual or auditory hallucination, no plan at the moment. on room air, noted skin rash and lice. Kept comfortable, will continue to monitor accordingly.
[2022-06-03 09:13] LABS: BILIRUBIN,URINE NEGATIVE (NEGATIVE); COLOR,URINE YELLOW (YELLOW); LEUKOCYTE ESTERASE ,URINE LARGE (NEGATIVE); NITRITE, URINE POSITIVE (NEGATIVE); PROTEIN,URINE NEGATIVE (NEGATIVE); UGLUCOSE NEGATIVE (NEGATIVE); UROBILINOGEN,URINE 0.2 EU/dL (0.2)
[2022-06-03 09:47] LABS: BASOPHILS # (AUTO) 0.2 K/uL (0.0-0.2); BASOPHILS % (AUTO) 4.6 % (0.0-2.0); EOSINOPHILS % (AUTO) 9.9 % (0.0-6.0); HEMATOCRIT 32 % (39-51); HEMOGLOBIN 9.7 g/dL (13.5-17.5); LYMPHOCYTES # (AUTO) 0.9 K/uL (0.8-4.8); LYMPHOCYTES % (AUTO) 23.2 % (20.0-44.0); MEAN CORPUSCULAR HGB CONC 31 g/dl (31.0-36.0); MEAN CORPUSCULAR VOLUME 76 fL (80-96); MONOCYTES # (AUTO) 0.6 K/uL (0.1-1.30); MONOCYTES % (AUTO) 14.8 % (2.0-12.0); NEUTROPHILS # (AUTO) 1.8 K/uL (1.8-8.9); NEUTROPHILS % (AUTO) 47.5 % (43.0-81.0); PLATELET COUNT (AUTO) 381 K/uL (150-450); RED BLOOD CELL COUNT(AUTO) 4.21 MIL/uL (4.5-6.0); WHITE BLOOD COUNT (AUTO) 3.8 K/uL (4.3-11.0)
[2022-06-03] MEDS ORDERED: SULF1TAB48 PO (09:50)
[2022-06-03] MEDS ORDERED: CEFTRIAXONE 1 G VIAL IM ONE (10:00)
[2022-06-03 10:02] LABS: CALCIUM, SERUM 8.5 mg/dL (8.5-10.1); POTASSIUM 3.2 mmol/L (3.5-5.1)
[2022-06-03] MEDS ORDERED: LIDOCAINE /MPF 1% VIAL 5 ML VIAL ONE (10:03)
[2022-06-03] MEDS ORDERED: CEFTRIAXONE 1 G VIAL ONE (10:03)
[2022-06-03 10:07] LABS: BACTERIA,URINE 3+ /HPF (None Seen); SQUAMOUS EPITHELIAL CELL,UR Few /HPF (None Seen); WBC,URINE 21-50 /HPF (0-3)
[2022-06-03 10:16] LABS: BILIRUBIN,DIRECT 0.1 mg/dL (0.0-0.2); BILIRUBIN,TOTAL 0.4 mg/dL (0.2-1.0); TOTAL PROTEIN, SERUM 7.7 g/dL (6.4-8.2)
[2022-06-03 11:14] LABS: ALBUMIN 3.3 g/dL (3.4-5.0)
[2022-06-03] MEDS ORDERED: POTASSIUM CHLORIDE 20 MEQ TAB.PRT.SR PO ONE ×2 (12:00→12:21)
[2022-06-03] MEDS ORDERED: QUET25TA PO (12:13)
[2022-06-03] MEDS ORDERED: PERMETHRIN 5% CRM 60 GM TUBE TP ONE (13:00)
--- NOTE | 2022-06-03 19:30 | NUR ---
REPORT GIVEN TO RAMONA ALFRED FOR JOSE L
--- NOTE | 2022-06-03 20:05 | NUR ---
PT WAS TRANSPORTED TO UNIT ON [place] WITH EMT AT BEDSIDE. PT IS IN STABLE CONDITION FOR TRANSPORT.
[2022-06-03] MEDS ORDERED: MAG HYDROX/AL HYDROX/SIMETH 30 ML UDC PO PRN (20:30)
[2022-06-03] MEDS ORDERED: ACETAMINOPHEN 325 MG TABLET PO PRN (20:30)
[2022-06-03] MEDS ORDERED: LORAZEPAM 0.5 MG TABLET PO PRN (20:30)
[2022-06-03] MEDS ORDERED: BLOOD SUGAR DIAGNOSTIC 1 EACH STRIP IN ONE (20:30)
[2022-06-03] MEDS ORDERED: MAGNESIUM HYDROXIDE 30 ML UDC PO PRN (20:30)
[2022-06-03 21:04] VITALS: BP 146/76
[2022-06-03] MEDS: ATORVASTATIN 10 MG TABLET PO SCH (21:44)
[2022-06-03] MEDS ORDERED: ZOLPIDEM TARTRATE 5 MG TABLET PO PRN (22:00)
--- NOTE | 2022-06-03 22:15 | NUR ---
GANG PUNCH OPERATOR NOTE: ADMITTED A 72-Y/O, MALE FROM [facility] ER ORIGINALLY FROM HOME TO [facility] ON 5150 HOLD. PER 5150 HOLD, PATIENT IS ALERT AND ORIENTED IN ALL SPHERES. HE IS DEPRESSED WITH A FLAT AFFECT. HE IS SUICIDAL WITH A PLAN TO OVERDOSE. PATIENT HAS BEEN OFF HIS BIPOLAR MEDICATIONS FOR FEW MONTHS AND NOT SLEEPING FOR A WEEK. UPON FACE TO FACE EVALUATION, PATIENT IS ALERT AND ORIENTED X 2-3, REMEMBERS THE DATE, PLACE AND YEAR BUT FORGOT HIS GIRLFRIEND AND SISTER'S NAME AND STATED," WHAT IS WRONG WITH MY HEAD, I FORGET THINGS NOW A DAYS." PATIENT NOTED TO BE EASILY ANXIOUS, RESTLESS, WORRIED, GUARDED, DEPRESSED BUT REDIRECTABLE. PATIENT DENIES SI/HI AT THIS TIME AND IS WILLING TO CONTRACT FOR SAFETY. SKIN ASSESSMENT DONE, NOTED WITH GENERALIZED BODY RASH/SCRATCHES/BACK ABRASIONS. PER PAPER SALES MANAGER REPORT, PERMETHRIN CREAM WAS APPLIED IN ER AND SHOWER TO BE GIVEN IN AM. PATIENT HAS POOR HYGIENE, LONG TOE NAILS, DISHEVELED. AMBULATORY BUT UNSTEADY AT TIMES. FALL RISK. ALL BELONGINGS WERE CHECKED FOR CONTRABAND AND WAS KEPT IN PT. ROOM LOCKER. HIS VALUABLES WERE TAKEN TO HOSPITAL SAFE VAULT. NO C/O PAIN VERBALIZED AT THIS TIME. NO ACUTE DISTRESS NOTED. PER PATIENT HIS GIRLFRIEND PARK IS ADMITTED AT [facility] WELL IN ROOM 103. PATIENT WOULD LIKE TO NOTIFY PARK ONLY ABOUT HIS ADMISSION AT [facility]. PATIENT'S RIGHTS WERE DISCUSSED AND BOOKLET WAS GIVEN. DR CORDERO AND HOSPITALIST CHANDAN TAPIA WAS NOTIFIED OF THE ADMISSION. BED IN LOW AND LOCKED POSITION. BED ALARM ON. SNACKS OFFERED AND TOLERATED WELL. SAFETY PRECAUTIONS MAINTAINED. WILL CONTINUE TO MONITOR Q15 MINS FOR MOOD, SAFETY AND BEHAVIOR.
--- NOTE | 2022-06-04 06:58 | NUR ---
RN NOTE: PATIENT'S SISTER MACIE SMITH ( IS A PSYCHOLOGIST) CALLED TO GET AN UPDATE ABOUT PATIENT'S CONDITION. UPDATE GIVEN TO LUIS AND HER PHONE # IS [phone]. PER PATIENT REQUEST, CALLED [facility] TO INFORM PARK JEAN CLAUDE (PT'S GIRLFRIEND) WHO IS ADMITTED IN [facility] ABOUT PATIENT'S ADMISSION, [facility] NURSE WILL RELAY THE MESSAGE TO PARK SILVERIO.
--- NOTE | 2022-06-04 07:04 | NUR ---
PER PATIENT'S SISTER LUIS QUIJANO, PATIENT WAS ON SEROQUEL AND ABILIFY BUT WAS OFF HIS MEDICATIONS FOR FEW MONTHS. PER LUIS SEROQUEL WAS INEFFECTIVE BUT ABILIFY WAS EFFECTIVE FOR THE PATIENT. ALSO LUIS MENTIONED THAT PATIENT WAS TREATED FOR SKIN CONDITION ECZEMA IN THE PAST. PER LUIS PATIENT NEVER BEEN DIAGNOSED WITH SCABIES. ENDORSED TO AM RAMONA.
[2022-06-04] MEDS: PANTOPRAZOLE 40 MG TABLET.DR PO SCH (07:30)
[2022-06-04 07:56] LABS: CHOLESTEROL 169 mg/dL (<200); HDL CHOLESTEROL 109 mg/dL (40-60); LDL 46 mg/dL (0-99); TRIGLYCERIDES 49 mg/dL (30-150)
[2022-06-04 08:00] VITALS: BP 152/83
[2022-06-04 08:08] LABS: ALANINE AMINOTRANSFERASE 50 U/L (12-78); ALBUMIN 2.8 g/dL (3.4-5.0); ALKALINE PHOSPHATASE 113 U/L (46-116); ASPARTATE AMINOTRANSFERASE 90 U/L (15-37); BILIRUBIN,TOTAL 0.8 mg/dL (0.2-1.0); CALCIUM, SERUM 8.5 mg/dL (8.5-10.1); CARBON DIOXIDE 25 mmol/L (21-32); CHLORIDE 104 mmol/L (98-107); CREATININE 1.1 mg/dL (0.6-1.3); GLUCOSE 80 mg/dL (74-106); POTASSIUM 3.8 mmol/L (3.5-5.1); SODIUM SERUM 138 mmol/L (136-145); TOTAL PROTEIN, SERUM 6.8 g/dL (6.4-8.2); UREA NITROGEN, BLOOD 10 mg/dL (7-18)
[2022-06-04] MEDS: SULFAMETH/TRIMETH 800/160 MG 1 UDTAB TABLET PO SCH ×2 (08:34→17:42)
[2022-06-04] MEDS: TAMSULOSIN 0.4 MG CAP.SR.24H PO SCH (08:34)
[2022-06-04] MEDS ORDERED: hydrOXYzine PAMOATE 25 MG CAPSULE PO PRN (10:00)
[2022-06-04] MEDS ORDERED: DIAZEPAM 5 MG TABLET PO PRN (10:00)
--- NOTE | 2022-06-04 12:02 | NUR ---
Social Work Note/Substance Abuse Intervention: Patient was provided with a brief substance abuse intervention and referred to [facility] ([phone]), [facility] ([phone]), and [facility] ([phone]) for having positive tox.
--- NOTE | 2022-06-04 12:02 | NUR ---
SW Family Contact: SW contacted pt's sister who is a psychologist Dr. Contreras ([phone]) and left a detailed voicemail to discuss treatment/discharge plan and to gather collateral. SW waiting for call back.
--- NOTE | 2022-06-04 12:05 | NUR ---
Treatment Plan: Pt refused to sign treatment plan and was suspicious.
--- NOTE | 2022-06-04 12:22 | NUR ---
YAJAIRA Initial Discharge Note: Pt states that he is homeless, unsure if this information is accurate. YAJAIRA awaiting for sister Dr. Contreras ([phone]) to gather further information. YAJAIRA contacted sister Ben and left a detailed voicemail, waiting for a call back. YAJAIRA will work with the pt, MD, and family to help coordinate appropriate discharge.
[2022-06-04] MEDS: THIAMINE HCL 100 MG TABLET PO SCH (13:08)
[2022-06-04] MEDS: ARIPIPRAZOLE 5 MG TABLET PO SCH (14:07)
[2022-06-04 19:58] VITALS: BP 122/67
[2022-06-04] MEDS: DIVALPROEX SODIUM 250 MG TABLET.DR PO SCH (21:36)
[2022-06-04] MEDS: ATORVASTATIN 10 MG TABLET PO SCH (22:12)
[2022-06-04] MEDS: TRAZODONE 50 MG TABLET PO SCH (22:12)
[2022-06-05 08:00] VITALS: BP 132/71
[2022-06-05] MEDS: PANTOPRAZOLE 40 MG TABLET.DR PO SCH (08:45)
[2022-06-05] MEDS: SULFAMETH/TRIMETH 800/160 MG 1 UDTAB TABLET PO SCH ×2 (08:46→16:36)
[2022-06-05] MEDS: THIAMINE HCL 100 MG TABLET PO SCH (08:46)
[2022-06-05] MEDS: DIVALPROEX SODIUM 250 MG TABLET.DR PO SCH ×2 (08:46→21:08)
[2022-06-05] MEDS: MULTIVITAMINS,THERAGRAN 1 UDTAB TABLET PO SCH (08:46)
[2022-06-05] MEDS: TAMSULOSIN 0.4 MG CAP.SR.24H PO SCH (08:46)
[2022-06-05] MEDS: ARIPIPRAZOLE 5 MG TABLET PO SCH (08:46)
--- NOTE | 2022-06-05 12:15 | NUR ---
SW Family Contact: SW received a call from pt's sister who is a psychologist Dr. Contreras ([phone]) stating that she is very busy and unable to return phone calls and stated to leave a detailed voicemail and she will return the call back with answered questions.
--- NOTE | 2022-06-05 12:16 | NUR ---
YAJAIRA Family Contact: YAJAIRA contacted pt's sister who is a psychologist Dr. Contreras ([phone]) and gathered collateral. Sister stated that pt does not have a place to go to at this time and his house is being remodeled. She stated that her and her are currently residing in [place] and the wood coater goal is to bring pt to them. She stated in the meantime she would want the hospital to help find a nursing facility until his house is remodeled. YAJAIRA will work with the family and pt to help with this.
[2022-06-05 16:00] VITALS: BP 107/66
--- NOTE | 2022-06-05 18:25 | NUR ---
RN-NOTES PATIENT IS VISIBLE IN THE UNIT A/O X2,QUIET,COOPERATIVE WITH THE STAFF AND CARE. COMPLIANT WITH MEDICATIONS. NEEDS MAXIMUM ASSIST WITH ADL'S.ALL NEEDS ATTENDED AND ANTICIPATED. WILL CONT. MONITORING FOR SAFETY FOR BEHAVIOR. WILL ENDORSE TO INCOMING NURSE FOR CONTINUITY OF CARE. Addendum: 06/05/22 at 1926 by DASHA RENTERIA RN CORRECTIONS ON MY ABOVE NOTES PATIENT NEEDS MINIMAL ASSIST WITH ADL'S, AMBULATORY IN THE UNIT WITH STEADY GAIT.
[2022-06-05 20:00] VITALS: BP 117/65
--- NOTE | 2022-06-05 20:19 | NUR ---
RN NOTES:PATIENT RESTING IH HIS BED, FORGETFUL AT TIMES. DISORGNIZED, FLAT AFFECT, DEPRSSED. NO ACUTE DISTRESS NOTED. COOPERATIVE TO PLAN OF CARE. DENIES SI/HI AT THIS TIME AND WILLING TO CONTRACT FOR SAFETY.ENCOURAGED TO VERBALIZED ANY FEELING OR CONCERN,SAFETY MEASURES IN PLACE. BED IN LOW LOCKED POSITION. WILL CONTINUE TO MONITOR Q 15 MIN FOR SAFETY AND BEHAVIOR.
[2022-06-05] MEDS: TRAZODONE 50 MG TABLET PO SCH (21:08)
[2022-06-05] MEDS: ATORVASTATIN 10 MG TABLET PO SCH (21:08)
[2022-06-06 08:00] VITALS: BP 106/63
[2022-06-06] MEDS: ARIPIPRAZOLE 5 MG TABLET PO SCH (08:24)
[2022-06-06] MEDS: PANTOPRAZOLE 40 MG TABLET.DR PO SCH (08:24)
[2022-06-06] MEDS: THIAMINE HCL 100 MG TABLET PO SCH (08:24)
[2022-06-06] MEDS: MULTIVITAMINS,THERAGRAN 1 UDTAB TABLET PO SCH (08:24)
[2022-06-06] MEDS: SULFAMETH/TRIMETH 800/160 MG 1 UDTAB TABLET PO SCH ×2 (08:24→16:28)
[2022-06-06] MEDS: TAMSULOSIN 0.4 MG CAP.SR.24H PO SCH (08:24)
[2022-06-06] MEDS: DIVALPROEX SODIUM 250 MG TABLET.DR PO SCH ×2 (08:24→21:28)
[2022-06-06 16:00] VITALS: BP 108/64
--- NOTE | 2022-06-06 19:30 | NUR ---
[facility]PS RN NOTE, RECEIVED PATIENT AWAKE AND IN BED, NO S/S OR COMPLAINTS OF PAIN AT THIS TIME. PATIENT IS DISPLAYING NO S/S OF APPARENT DISTRESS AT THIS TIME. PATIENT BREATHING IS UNLABORED WITH EQUAL RISE AND FALL OF THE CHEST. PATIENT IS ALERT AND ORIENTED X 2 ON ROOM AIR WITH A SPO2 99%. PATIENT IS COMPLIANT WITH MEDICATIONS, CALM, POLITE, DISORGANIZED, FORGETFUL, AND COOPERATIVE. PATIENT DENIES SUICIDAL AND HOMICIDAL IDEATIONS AT THIS TIME. PATIENT ASSISTED WITH TURNING AND REPOSITIONING Q2HR AND PRN FOR COMFORT AND CIRCULATION. PATIENT HAS NO NEEDS AT THIS TIME. PATIENT EDUCATED ON THE USE OF THE CALL DENNIS. PATIENT BED SIDE RAILS UP X 2 FOR SAFETY. PATIENT BED IS LOCKED, LOW, WITH BED ALARM ON. WILL CONTINUE TO MONITOR THIS PATIENT Q15 MINUTES WITH THE HELP OF STAFF TO MAINTAIN SAFETY.
[2022-06-06 21:00] VITALS: BP 134/71
[2022-06-06] MEDS: ATORVASTATIN 10 MG TABLET PO SCH (21:28)
[2022-06-06] MEDS: TRAZODONE 50 MG TABLET PO SCH (21:28)
[2022-06-07] MEDS: PANTOPRAZOLE 40 MG TABLET.DR PO SCH (07:58)
[2022-06-07 08:00] VITALS: BP 124/69
[2022-06-07] MEDS: ARIPIPRAZOLE 5 MG TABLET PO SCH (08:14)
[2022-06-07] MEDS: DIVALPROEX SODIUM 250 MG TABLET.DR PO SCH ×2 (08:14→21:20)
[2022-06-07] MEDS: THIAMINE HCL 100 MG TABLET PO SCH (08:14)
[2022-06-07] MEDS: MULTIVITAMINS,THERAGRAN 1 UDTAB TABLET PO SCH (08:14)
[2022-06-07] MEDS: TAMSULOSIN 0.4 MG CAP.SR.24H PO SCH (08:14)
[2022-06-07] MEDS: SULFAMETH/TRIMETH 800/160 MG 1 UDTAB TABLET PO SCH ×2 (08:14→16:30)
[2022-06-07 16:00] VITALS: BP 101/63
--- NOTE | 2022-06-07 18:51 | NUR ---
RN-NOTES PATIENT IS VISIBLE IN THE UNIT A/O X3,COOPERATIVE WITH THE STAFF AND CARE. COMPLIANT WITH MEDICATIONS. NEEDS MINIMAL ASSIST WITH ADL'S. AMBULATORY STEADY GAIT. ABLE TO MAKE NEEDS KNOWN TO THE STAFF.ALL NEEDS ATTENDED AND ANTICIPATED. WILL CONT. MONITORING FOR SAFETY FOR BEHAVIOR. WILL ENDORSE TO INCOMING NURSE FOR CONTINUITY OF CARE.
[2022-06-07 20:31] VITALS: BP 110/61
[2022-06-07] MEDS: TRAZODONE 50 MG TABLET PO SCH (21:20)
[2022-06-07] MEDS: ATORVASTATIN 10 MG TABLET PO SCH (21:20)
[2022-06-08] MEDS: PANTOPRAZOLE 40 MG TABLET.DR PO SCH (07:48)
[2022-06-08 08:00] VITALS: BP 102/60
[2022-06-08] MEDS: THIAMINE HCL 100 MG TABLET PO SCH (09:10)
[2022-06-08] MEDS: MULTIVITAMINS,THERAGRAN 1 UDTAB TABLET PO SCH (09:10)
[2022-06-08] MEDS: ARIPIPRAZOLE 5 MG TABLET PO SCH (09:10)
[2022-06-08] MEDS: DIVALPROEX SODIUM 250 MG TABLET.DR PO SCH ×2 (09:11→20:56)
[2022-06-08] MEDS: SULFAMETH/TRIMETH 800/160 MG 1 UDTAB TABLET PO SCH (09:11)
[2022-06-08] MEDS: TAMSULOSIN 0.4 MG CAP.SR.24H PO SCH (09:11)
[2022-06-08 16:00] VITALS: BP 123/71
[2022-06-08 20:04] VITALS: BP 123/74
[2022-06-08] MEDS: NITROFURANTOIN/MONOHYDRATE MACROCRYSTALS 100 MG CAPSULE PO SCH (20:56)
[2022-06-08] MEDS: ATORVASTATIN 10 MG TABLET PO SCH (20:56)
[2022-06-08] MEDS: TRAZODONE 50 MG TABLET PO SCH (21:26)
[2022-06-09] MEDS: PANTOPRAZOLE 40 MG TABLET.DR PO SCH (07:30)
[2022-06-09 08:00] VITALS: BP 120/80
--- NOTE | 2022-06-09 08:19 | NUR ---
YAJAIRA SNF Referral: YAJAIRA sent clinicals to [facility] ([phone]) for placement. YAJAIRA sent H & P, progress notes, and medication list.
--- NOTE | 2022-06-09 08:20 | NUR ---
SW Note: Pt stated that his girlfriend is currently at [facility] and he stated he would want to go there. He stated if not approved he is open for this assembly instructions writer to find another placement.
[2022-06-09] MEDS: ARIPIPRAZOLE 5 MG TABLET PO SCH (08:31)
[2022-06-09] MEDS: THIAMINE HCL 100 MG TABLET PO SCH (08:31)
[2022-06-09] MEDS: MULTIVITAMINS,THERAGRAN 1 UDTAB TABLET PO SCH (08:31)
[2022-06-09] MEDS: DIVALPROEX SODIUM 250 MG TABLET.DR PO SCH ×2 (08:31→20:50)
[2022-06-09] MEDS: TAMSULOSIN 0.4 MG CAP.SR.24H PO SCH (08:32)
[2022-06-09] MEDS: NITROFURANTOIN/MONOHYDRATE MACROCRYSTALS 100 MG CAPSULE PO SCH ×2 (08:32→20:50)
--- NOTE | 2022-06-09 12:35 | NUR ---
SW SNF Contact: YAJAIRA received a call from [facility] ([phone]) from admin Uriel who stated that they cannot accept pt due to behavioral issues.
[2022-06-09 16:00] VITALS: BP 133/68
[2022-06-09 20:01] VITALS: BP 135/73
[2022-06-09] MEDS: TRAZODONE 50 MG TABLET PO SCH (21:01)
[2022-06-09] MEDS: ATORVASTATIN 10 MG TABLET PO SCH (21:01)
--- NOTE | 2022-06-10 07:00 | NUR ---
RN NOTES: RECEIVED PT IN BED. AWAKE, ALERT AND ABLE TO VERBALIZED NEEDS. NOS OB OR CARDIAC DISTRESS NOTED. DENIES NAY PAIN/DISCOMFORTS AT THIS TIME.SAFETY MEASURES MAINTAINED SIDE RAILS UP X 2. CALL LIGHT IN EASY REACH FOR HELP. WILL MONITOR PT ACCORDINGLY.
[2022-06-10] MEDS: PANTOPRAZOLE 40 MG TABLET.DR PO SCH (07:19)
[2022-06-10 08:00] VITALS: BP 119/66
[2022-06-10] MEDS: NITROFURANTOIN/MONOHYDRATE MACROCRYSTALS 100 MG CAPSULE PO SCH ×3 (08:32→21:19)
[2022-06-10] MEDS: ARIPIPRAZOLE 5 MG TABLET PO SCH (08:32)
[2022-06-10] MEDS: MULTIVITAMINS,THERAGRAN 1 UDTAB TABLET PO SCH (08:33)
[2022-06-10] MEDS: DIVALPROEX SODIUM 250 MG TABLET.DR PO SCH ×2 (08:33→20:46)
[2022-06-10] MEDS: THIAMINE HCL 100 MG TABLET PO SCH (08:33)
[2022-06-10] MEDS: TAMSULOSIN 0.4 MG CAP.SR.24H PO SCH (08:34)
--- NOTE | 2022-06-10 08:42 | NUR ---
YAJAIRA SNF Referral: YAJAIRA sent clinicals to [facility] [place] ([phone]) for placement. YAJAIRA sent H & P, progress notes, and medication list.
--- NOTE | 2022-06-10 11:48 | NUR ---
SW SNF Referral: YAJAIRA spoke with [facility] [place] ([phone]) who stated pt is accepted.
--- NOTE | 2022-06-10 11:52 | NUR ---
Court Notification: SW contacted pt's sister who is a psychologist Dr. Contreras ([phone]) and left a detailed voicemail of [phone] hearing today.
--- NOTE | 2022-06-10 11:53 | NUR ---
YAJAIRA Family Contact: SW contacted pt's sister who is a psychologist Dr. Contreras ([phone]) and notified that pt was not accepted at [facility] and notified that pt is accepted at [facility]. SW left a detailed voicemail.
--- NOTE | 2022-06-10 12:04 | NUR ---
Court Hearing: Patient's court hearing for 3640 was today and it was upheld for GD.
[2022-06-10] MEDS: HYDROCORTISONE 2.5% CREAM 28.4 GM TUBE TP SCH (16:09)
[2022-06-10 16:11] VITALS: BP 128/69
[2022-06-10 20:25] VITALS: BP 126/73
[2022-06-10] MEDS: ATORVASTATIN 10 MG TABLET PO SCH (20:46)
[2022-06-10] MEDS: TRAZODONE 50 MG TABLET PO SCH (21:21)
--- NOTE | 2022-06-11 07:55 | NUR ---
RN OPENING NOTES PATIENT AWAKE IN BED RESTING, A/O X2-3, FORGETFUL, ISOLATIVE. NO S/S OF PAIN NOTED AT THIS TIME. ON ROOM AIR, NO DISTRESS OR SHORTNESS OF BREATH NOTED. PATIENT COMPLIANT WITH MEDICATION. PATIENT DENIES SUICIDE IDEATIONS AND HOMICIDAL IDEATIONS AT THIS TIME. PATIENT HAS NO NEEDS AT THIS TIME. FALL AND SAFETY MEASURES IN PLACE, BED ALARM ON, BED IN LOW LOCK POSITION, CALL LIGHT AND TABLE WITHIN EASY REACH, SIDE RAILS UP X2. WILL CONTINUE TO MONITOR.
[2022-06-11 08:00] VITALS: BP 121/65
[2022-06-11] MEDS: THIAMINE HCL 100 MG TABLET PO SCH (09:44)
[2022-06-11] MEDS: ARIPIPRAZOLE 5 MG TABLET PO SCH (09:44)
[2022-06-11] MEDS: DIVALPROEX SODIUM 250 MG TABLET.DR PO SCH ×2 (09:44→21:24)
[2022-06-11] MEDS: MULTIVITAMINS,THERAGRAN 1 UDTAB TABLET PO SCH (09:44)
[2022-06-11] MEDS: NITROFURANTOIN/MONOHYDRATE MACROCRYSTALS 100 MG CAPSULE PO SCH ×2 (09:44→21:24)
[2022-06-11] MEDS: TAMSULOSIN 0.4 MG CAP.SR.24H PO SCH (09:45)
[2022-06-11] MEDS: PANTOPRAZOLE 40 MG TABLET.DR PO SCH (09:45)
[2022-06-11] MEDS: HYDROCORTISONE 2.5% CREAM 28.4 GM TUBE TP SCH ×2 (09:45→16:50)
--- NOTE | 2022-06-11 10:00 | NUR ---
RN NOTE DOCTOR ORDERED VALPROIC AIC FOR TODAY BUT ODER WAS CANCELLED BY UNKNOWN REASON. PLEASE DO NOT CANCELLED DOCTOR ORDER. DOCTOR CONSUELO REORDERED VALPROIC ACID FOR TOMORROW 06/12/22. DOCTOR NEEDS PATIENT'S VALPROIC ACID LEVEL. LAB WAS INFORMED, CHARGE NURSE AWARE.
--- NOTE | 2022-06-11 11:39 | NUR ---
YAJAIRA Note: SW met with pt and discussed discharge planning. YAJAIRA stated that pt is accepted at [facility] and he was agreeable of going to the nursing facility.
[2022-06-11 16:00] VITALS: BP 137/72
--- NOTE | 2022-06-11 19:51 | NUR ---
GPS RN OPENING NOTES RECEIVED PATIENT RESTING IN BED, A/O X2-3, FORGETFUL, ISOLATIVE. NO S/S OF PAIN NOTED AT THIS TIME. ON ROOM AIR, NO DISTRESS OR SHORTNESS OF BREATH NOTED. PATIENT DENIES SUICIDE IDEATIONS AND HOMICIDAL IDEATIONS AT THIS TIME. PATIENT HAS NO NEEDS AT THIS TIME. FALL AND SAFETY MEASURES IN PLACE, BED ALARM ON, BED IN LOW AND LOCKED POSITION, SIDE RAILS UP X2 FOR SAFETY. WILL CONTINUE TO MONITOR THROUGHOUT THE SHIFT.
[2022-06-11 20:00] VITALS: BP 141/83
[2022-06-11] MEDS: ATORVASTATIN 10 MG TABLET PO SCH (21:24)
[2022-06-11] MEDS: TRAZODONE 50 MG TABLET PO SCH (21:25)
[2022-06-12 08:00] VITALS: BP 146/72
[2022-06-12] MEDS: MULTIVITAMINS,THERAGRAN 1 UDTAB TABLET PO SCH (08:11)
[2022-06-12] MEDS: ARIPIPRAZOLE 5 MG TABLET PO SCH (08:11)
[2022-06-12] MEDS: NITROFURANTOIN/MONOHYDRATE MACROCRYSTALS 100 MG CAPSULE PO SCH ×2 (08:11→21:31)
[2022-06-12] MEDS: THIAMINE HCL 100 MG TABLET PO SCH (08:12)
[2022-06-12] MEDS: PANTOPRAZOLE 40 MG TABLET.DR PO SCH (08:12)
[2022-06-12] MEDS: TAMSULOSIN 0.4 MG CAP.SR.24H PO SCH (08:20)
[2022-06-12] MEDS: HYDROCORTISONE 2.5% CREAM 28.4 GM TUBE TP SCH ×2 (09:26→16:28)
--- NOTE | 2022-06-12 09:45 | NUR ---
RN Notes: Received pt. awake in bed and responsive to staffs. Ate 100% for breakfast and compliant on meds and cooperative with the treatment. Pt. seen inn the dining and watching tv. Encouraged to verbalize feelings and motivated to attend group activity. Needs attended and will continue to monitor for safety.
[2022-06-12] MEDS: DIVALPROEX SODIUM 250 MG TABLET.DR PO SCH ×2 (09:50→21:31)
--- NOTE | 2022-06-12 09:51 | NUR ---
Dr. Billingsley in the unit and told the Depakote level result is still pending. Psychiatrist gave instruction to give the Depakote and we don't have to wait for the result.
--- NOTE | 2022-06-12 12:39 | NUR ---
Rico Stanton HEAVY EQUIPMENT RENTAL ASSOCIATE seen pt. and ordered to changed diet to Regular Diet.
[2022-06-12 16:00] VITALS: BP 122/68
--- NOTE | 2022-06-12 19:30 | NUR ---
GPS RN NOTE, RECEIVED PATIENT AWAKE AND IN BED, NO S/S OR COMPLAINTS OF PAIN AT THIS TIME. PATIENT IS DISPLAYING NO S/S OF APPARENT DISTRESS AT THIS TIME. PATIENT BREATHING IS UNLABORED WITH EQUAL RISE AND FALL OF THE CHEST. PATIENT IS ALERT AND ORIENTED X 2 ON ROOM AIR WITH A SPO2 97%. PATIENT IS COMPLIANT WITH MEDICATIONS, CALM, POLITE, DISORGANIZED, FORGETFUL, AND COOPERATIVE. PATIENT DENIES SUICIDAL AND HOMICIDAL IDEATIONS AT THIS TIME. PATIENT ASSISTED WITH TURNING AND REPOSITIONING Q2HR AND PRN FOR COMFORT AND CIRCULATION. PATIENT HAS NO NEEDS AT THIS TIME. PATIENT EDUCATED ON THE USE OF THE CALL DENNIS. PATIENT BED SIDE RAILS UP X 2 FOR SAFETY. PATIENT BED IS LOCKED, LOW, WITH BED ALARM ON. WILL CONTINUE TO MONITOR THIS PATIENT Q15 MINUTES WITH THE HELP OF STAFF TO MAINTAIN SAFETY.
[2022-06-12 20:00] VITALS: BP 120/63
[2022-06-12] MEDS: TRAZODONE 50 MG TABLET PO SCH (21:31)
[2022-06-12] MEDS: ATORVASTATIN 10 MG TABLET PO SCH (21:31)
--- NOTE | 2022-06-13 07:47 | NUR ---
SW Discharge Note: Patient will be discharged to [facility] [address] [address], [place] [address] ([phone]). Please arrange ambulance transportation at 1PM. Spoke with Reema, Admin Coordinator at the facility who states they are ready to accept the patient today. Patients sister Dr. Contreras ([phone]) is aware and agreeable. Patient is alert and oriented x. Patient denies any suicidal or homicidal ideation. Patient will follow-up at the facility with Dr. Billingsley (psychiatrist) [address] [address]; ([phone]) and (Cosmetic Sales Assistant) Dr. Rush [address], [place] [address]; ([phone]). Patient presents with euthymic mood and congruent affect.
[2022-06-13 08:00] VITALS: BP 132/74
[2022-06-13] MEDS: HYDROCORTISONE 2.5% CREAM 28.4 GM TUBE TP SCH (08:33)
[2022-06-13] MEDS: MULTIVITAMINS,THERAGRAN 1 UDTAB TABLET PO SCH (08:35)
[2022-06-13] MEDS: TAMSULOSIN 0.4 MG CAP.SR.24H PO SCH (08:35)
[2022-06-13] MEDS: THIAMINE HCL 100 MG TABLET PO SCH (08:35)
[2022-06-13] MEDS: ARIPIPRAZOLE 5 MG TABLET PO SCH (08:35)
[2022-06-13] MEDS: NITROFURANTOIN/MONOHYDRATE MACROCRYSTALS 100 MG CAPSULE PO SCH (08:35)
[2022-06-13] MEDS: PANTOPRAZOLE 40 MG TABLET.DR PO SCH (08:35)
[2022-06-13] MEDS: DIVALPROEX SODIUM 250 MG TABLET.DR PO SCH (08:35)
--- NOTE | 2022-06-13 08:51 | NUR ---
Dr. Billingsley gave an order to D/C hold and D/C to [facility], to continue same meds including prn and to follow up with psych and medical doctors.
--- NOTE | 2022-06-13 09:56 | NUR ---
Dr. Billingsley made aware of the Valproic Acid level.
--- NOTE | 2022-06-13 13:30 | NUR ---
GPS/RN [facility] PROPERTY RETURNED EXIT CARE INSTRUCTIONS AND MEDS LIST GIVEN. REPORT GIVEN TO STACY AT [facility]. NO SI OR HI AT THE TIME OF DISCHARGE. AMBULATORY. VSS. REFUSED PICTURES ON DISCHARGE
== END 2022-06-13 13:30 | DRG 885 ==
LOC: ER 08:20 → GPS 18:21
PROVIDERS: ADMIT Psychiatry & Neurology Psychiatry; ATTEND Nurse Practitioner Family
DX: F31.5 Bipolar disorder, current episode depressed, severe, with psychotic features (principal); F10.229 Alcohol dependence with intoxication, unspecified; F10.239 Alcohol dependence with withdrawal, unspecified; F23 Brief psychotic disorder; R45.851 Suicidal ideations; F29 Unspecified psychosis not due to a substance or known physiological condition; F41.9 Anxiety disorder, unspecified; N40.0 Benign prostatic hyperplasia without lower urinary tract symptoms; E78.5 Hyperlipidemia, unspecified; K21.9 Gastro-esophageal reflux disease without esophagitis; K46.9 Unspecified abdominal hernia without obstruction or gangrene; Z79.899 Other long term (current) drug therapy; Y90.6 Blood alcohol level of 120-199 mg/100 ml; Z73.6 Limitation of activities due to disability; R53.1 Weakness; R27.8 Other lack of coordination; Z91.81 History of falling; G31.84 Mild cognitive impairment of uncertain or unknown etiology; Z91.14 Patient's other noncompliance with medication regimen; Z87.2 Personal history of diseases of the skin and subcutaneous tissue
CPT/HCPCS: 36415; 80048-TC; 80053-TC; 80061-TC; 80076-TC; 81001; 82962-TC; 85025-TC; 87081-TC; 87086-TC; 87186-TC; 97112-TC; 97116-TC; C9803; G0480; J0696; J3490

== ENCOUNTER 2024-10-20 16:28 | Emergency (ER) | payer MEDICARE, OTHER ==
[~2024-10-20] VITALS: Ht 177.8 cm; Wt 70.3 kg
[~2024-10-20 16:28] MED LIST changes: -ARIP10TA9 PO; -BETA15CR4 TP; -CLOT15CR5 TP; -HYDR50TA61 PO; -MOME45CR3 TP; -QUET200T PO; +SULF1TAB48 PO; -TRIA80CR12 TP
[2024-10-20 17:26] LABS: BASOPHILS # (AUTO) 0.1 K/uL (0.0-0.2); EOSINOPHILS # (AUTO) 0.1 K/uL (0.0-0.7); MEAN CORPUSCULAR VOLUME 91 fL (80-96); NEUTROPHILS # (AUTO) 1.6 K/uL (1.8-8.9)
[2024-10-20 17:37] LABS: BASOPHILS % (AUTO) 1.6 % (0.0-2.0); EOSINOPHILS % (AUTO) 1.4 % (0.0-6.0); HEMATOCRIT 42 % (39-51); LYMPHOCYTES # (AUTO) 1.3 K/uL (0.8-4.8); MEAN CORPUSCULAR HEMOGLOBIN 30 PG (26.0-33.0); MEAN CORPUSCULAR HGB CONC 33 g/dl (31.0-36.0); MONOCYTES # (AUTO) 0.7 K/uL (0.1-1.30); MONOCYTES % (AUTO) 18.3 % (2.0-12.0); NEUTROPHILS % (AUTO) 43.7 % (43.0-81.0); RED BLOOD CELL COUNT(AUTO) 4.64 MIL/uL (4.5-6.0); RED CELL DISTRIBUTION WIDTH 15.9 % (11.5-15.0); WHITE BLOOD COUNT (AUTO) 3.7 K/uL (4.3-11.0)
[2024-10-20 18:10] LABS: PLATELET COUNT (AUTO) 29 K/uL (150-450)
[2024-10-20 18:11] LABS: CALCIUM, SERUM 8.8 mg/dL (8.5-10.1); CREATININE 1.1 mg/dL (0.6-1.3); POTASSIUM 4.1 mmol/L (3.5-5.1)
[2024-10-20 18:16] LABS: ALBUMIN 3.3 g/dL (3.4-5.0); BILIRUBIN,DIRECT 0.1 mg/dL (0.0-0.2); BILIRUBIN,TOTAL 0.2 mg/dL (0.2-1.0); TOTAL PROTEIN, SERUM 7.3 g/dL (6.4-8.2)
[2024-10-20 18:23] LABS: APPEARANCE,URINE CLEAR (CLEAR); BILIRUBIN,URINE NEGATIVE (NEGATIVE); BLOOD, URINE TRACE-INTA Ery/uL (NEGATIVE); COLOR,URINE YELLOW (YELLOW); KETONES,URINE NEGATIVE (NEGATIVE); LEUKOCYTE ESTERASE ,URINE 3+ (NEGATIVE); NITRITE, URINE NEGATIVE (NEGATIVE); PROTEIN,URINE NEGATIVE (NEGATIVE); UGLUCOSE NEGATIVE (NEGATIVE); UROBILINOGEN,URINE 0.2 EU/dL (0.2)
[2024-10-20 18:37] LABS: WBC,URINE 51-80 /HPF (0-3)
[2024-10-20 18:38] LABS: ADD URINE CULTURE YES; BACTERIA,URINE 4+ /HPF (None Seen); SQUAMOUS EPITHELIAL CELL,UR 0-2 /HPF (None Seen)
[2024-10-20] MEDS ORDERED: CEPH-570 PO (18:53)
[2024-10-20 19:12] VITALS: BP 128/87; TEMP 98.3; O2SAT 99
[2024-10-21 04:45] LABS: ANISOCYTOSIS 1+; EOSINOPHILS % (MANUAL) 3 % (0-4); LYMPHOCYTES % (MANUAL) 31 % (16-48); MONOCYTES % (MANUAL) 16 % (0-11.0); NEUTROPHILS % (MANUAL) 50 (42-76); PLATELET ESTIMATE DECREASED
== END 2024-10-20 19:12 | disposition home or self-care (01) ==
LOC: ER 16:33
DX: N39.0 Urinary tract infection, site not specified (principal); E78.5 Hyperlipidemia, unspecified; F31.9 Bipolar disorder, unspecified; K21.9 Gastro-esophageal reflux disease without esophagitis; N40.0 Benign prostatic hyperplasia without lower urinary tract symptoms; Z79.899 Other long term (current) drug therapy
CPT/HCPCS: 36415; 80048-TC; 80076-TC; 81001; 83690-TC; 85025-TC; 87086-TC; 87186-TC